=== PATIENT | female | born 1955 | race Caucasian/White ===

== ENCOUNTER 2021-09-08 06:00 | Outpatient (RCR) | payer MEDICARE, SELFPAY | END 2021-09-23 23:59 | disposition home or self-care (01) | LOC: GPT 06:00 | PROVIDERS: Family Provider Family Medicine; PCP Family Medicine; Referring Provider Family Medicine; Visit Provider Family Medicine | DX: M54.2 Cervicalgia (principal) | CPT/HCPCS: 97110; 97140; 97162; G0283 ==

== ENCOUNTER 2021-09-24 06:00 | Outpatient (RCR) | payer MEDICARE, SELFPAY | END 2021-10-24 23:59 | disposition home or self-care (01) | LOC: GPT 06:00 | PROVIDERS: PCP Family Medicine; Referring Provider Family Medicine; Visit Provider Family Medicine | DX: M54.2 Cervicalgia (principal) | CPT/HCPCS: 97110; 97140; 97164; G0283 ==

== ENCOUNTER 2021-10-25 06:00 | Outpatient (RCR) | payer MEDICARE, SELFPAY | END 2021-11-24 23:59 | disposition home or self-care (01) | LOC: GPT 06:00 | PROVIDERS: PCP Family Medicine; Referring Provider Family Medicine; Visit Provider Family Medicine | DX: M54.2 Cervicalgia (principal) | CPT/HCPCS: 97110; 97140 ==

== ENCOUNTER 2022-01-12 08:48 | Outpatient (CLI) | payer MEDICARE, SELFPAY ==
--- NOTE | 2022-01-12 | US_ITS ---
WS: [id number] Complete ABDOMINAL ULTRASOUND HISTORY: ABD PAIN COMPARISON: None available. Liver: 12.9 cm in length. Liver is normal size and echogenicity with no mass or intrahepatic dilatati on. Portal Vein: Not imaged. Gallbladder: Prior cholecystectomy. Pancreas: Not well visualized. CBD: 0.5 cm. Right kidney: 10.5 cm x 4.5 cm x 4.0 cm. No mass, cortical thickening or hydronephrosis. Left kidney: 10.1 cm x 4.4 cm x 3.9 cm. No mass, cortical thickening or hydronephrosis. Spleen: Normal size and echogenicity. Abdominal aorta and IVC are within normal limits. No ascites. US/US abdomen complete* [id number] IMPRESSION: 1. Prior cholecystectomy. 2. No bile duct dilatation. 3. Negative liver. 4. Pancreas not visualized.
--- NOTE | 2022-01-12 09:03 | XR_ITS ---
WS: [email or web address] Lumbar spine, 3 views, 01/12/2022 Clinical Data: CHRONIC LOW BACK PAIN Comparison: None. Findings: There is a posterior fusion at L4-L5 with an artificial disc at that level. The bilateral pedicle scr ews and connecting rods are intact. There is an L5 laminectomy. There is a slight levoscoliosis. Ther e is degenerative disc narrowing at T12-L1 and L1-L2 with anterior osteophytes at L1-L2 There are clips in the right upper quadrant from a cholecystectomy. There is a large amount of fecal material throughout the colon. XR/XR lumbar spine 2-3V* [id number] Impression: 1. Posterior fusion at L4-L5. 2. Levoscoliosis with osteoarthritis and degenerative disc disease at L1-L2. 3. Degenerative disc narrowing at T12-L1.
--- NOTE | 2022-01-12 09:03 | XR_ITS ---
WS: [email or web address] Left hand, 3 views, 01/12/2022 Clinical Data: LEFT HAND PAIN Comparison: None. Findings: No fractures or dislocations are seen. The soft tissues are unremarkable. There is osteoarthritis of the left thumb IP joint and base of the left first metacarpal. There is osteoarthritis of the left se cond finger DIP joint. There is calcification of the triradiate cartilage. No periarticular demineralization is seen. XR/XR hand LT min 3V* [id number] Impression: 1. 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 2. Calcification of the triradiate cartilage.
--- NOTE | 2022-01-12 09:03 | XR_ITS ---
WS: [email or web address] Right hand, 3 views, 01/12/2022 Clinical Data: RIGHT HAND PAIN Comparison: None. Findings: No fractures or dislocations are seen. The soft tissues are unremarkable. There is osteoa rthritic change of the base of the right first metacarpal. There is calcification of the triradiate c artilage. No periarticular demineralization is seen. XR/XR hand RT min 3V* [id number] Impression: Osteoarthritis of the base of the right first metacarpal and calcification of t he triradiate cartilage.
--- NOTE | 2022-01-12 09:04 | XR_ITS ---
WS: [email or web address] Right foot, 3 views, 01/13/2022 Clinical Data: RIGHT FOOT PAIN Comparison: None. Findings: No fractures or dislocations are seen. No bone destruction or erosion is noted. There is an osteotomy of the distal right first metatarsal with a bunionectomy. There is a probable bunionectomy of the la teral aspect of the head of the right fifth metatarsal.. There is an Achilles spur. XR/XR foot RT min 3V* [id number] Impression: 1. Osteotomy and bunionectomy of the distal right first metatarsal. 2. Probable bunionectomy of lateral aspect of distal right fifth metatarsal.
--- NOTE | 2022-01-12 09:04 | XR_ITS ---
WS: [email or web address] Left foot, 3 views, 01/13/2022 Clinical Data: LEFT FOOT PAIN Comparison: None. Findings: No fractures or dislocations are seen. No bone destruction or erosion is noted. There is a small buni on at the head of the left first metatarsal. No periarticular demineralization is seen. Is minimal ca lcification of the inferior posterior calcaneus which may be in the plantar fascia. XR/XR foot LT min 3V* [id number] Impression: Small bunion head of left first metatarsal.
== END 2022-01-12 08:49 | disposition home or self-care (01) ==
LOC: RAD 08:48
PROVIDERS: PCP Family Medicine; Visit Provider Family Medicine
DX: R10.9 Unspecified abdominal pain (principal); M79.671 Pain in right foot; G89.29 Other chronic pain; M21.612 Bunion of left foot; Z98.1 Arthrodesis status; M51.36 Other intervertebral disc degeneration, lumbar region; M47.816 Spondylosis without myelopathy or radiculopathy, lumbar region; M19.042 Primary osteoarthritis, left hand; M19.041 Primary osteoarthritis, right hand; Z90.49 Acquired absence of other specified parts of digestive tract
CPT/HCPCS: 72100; 73130; 73630; 76700

== ENCOUNTER → 2022-01-14 11:37 | Outpatient (BNVA) | payer OTHER, SELFPAY | PROVIDERS: Visit Provider Obstetrics & Gynecology | DX: N81.10 Cystocele, unspecified (principal); N39.490 Overflow incontinence | CPT/HCPCS: 81000 ==

== ENCOUNTER → 2022-02-11 13:25 | Outpatient (BNVA) | payer OTHER, SELFPAY | PROVIDERS: Visit Provider Obstetrics & Gynecology | DX: N94.10 Unspecified dyspareunia (principal); Z90.710 Acquired absence of both cervix and uterus; Z90.722 Acquired absence of ovaries, bilateral | CPT/HCPCS: 76857 ==

== ENCOUNTER → 2022-03-31 14:48 | Outpatient (BNVA) | payer MEDICARE, SELFPAY | PROVIDERS: PCP Family Medicine; Visit Provider Internal Medicine | DX: R76.8 Other specified abnormal immunological findings in serum (principal); K12.1 Other forms of stomatitis; M48.00 Spinal stenosis, site unspecified; L40.9 Psoriasis, unspecified; M25.50 Pain in unspecified joint; M46.1 Sacroiliitis, not elsewhere classified; M19.041 Primary osteoarthritis, right hand; M19.071 Primary osteoarthritis, right ankle and foot; M79.7 Fibromyalgia; Z87.891 Personal history of nicotine dependence | CPT/HCPCS: 72202; 73120; 73620; 80053; 81001; 82607; 82728; 82746; 82784; 83516; 83540; 85025; 85651; 86003; 86008; 86140; 86160; 86162; 86235; 86255; 86376; 86480; 86704; 86803; 86812; 87340; 99204 ==

== ENCOUNTER 2022-04-29 10:08 | Outpatient (CLI) | payer MEDICARE, SELFPAY ==
--- NOTE | 2022-04-29 10:41 | MR_ITS ---
WS: [email or web address] MRI LUMBAR SPINE NONCONTRAST HISTORY: LOW BACK PAIN, prior lumbar spine surgeries. New RIGHT radiculopathy. COMPARISON: No similar studies. TECHNIQUE: Sagittal and axial multisequence imaging is submitted. Straightening of the normal cervical and thoracic curvatures. Prior L4-5 posterior lumbar fusion. Disc spaces are narrowed and desiccated throughout the lumbar spine but most significant at L4-5 and L1-2. No acute fractures. Conus terminates normally at L1. L1-L2: Moderate osteophytic ridging and annular disc bulging. Disc bulging asymmetric to the RIGHT. M ild disc encroachment upon the traversing RIGHT L2 nerve root. No high-grade stenosis. L2-L3: Diffuse annular disc bulging with osteophytic ridging. Marked bilateral facet joint arthritis and hypertrophic bone formation. Facet joint arthritis encroaching into the subarticular recesses and central canal. Moderate central, bilateral subarticular recess and foraminal stenosis. RIGHT foramin al disc protrusion causing a more significant stenosis. Severe encroachment upon the RIGHT subarticul ar recess and traversing L3 nerve root. L3-L4: Diffuse annular disc bulging and osteophytic ridging. Severe facet joint arthritis and ligamen samantha flavum arthritis encroaching into the thecal sac and foramina. Severe central, bilateral subartic ular and RIGHT foraminal stenosis. Moderate LEFT foraminal stenosis. L4-L5: No central stenosis. Large laminectomy defect. Very mild foraminal stenosis. L5-S1: Bilateral facet joint arthritis. Mild encroachment into the subarticular recesses. No high-gra de stenosis. Paravertebral soft tissues are negative. MR/MR lumbar spine wo con* [id number] IMPRESSION: 1. Prior posterior lumbar fusion at L4-5. Large posterior laminectomy defect. 2. Severe central, bilateral subarticular recess and RIGHT foraminal stenosis at L3-4. Predominantly due to facet joint arthritis and ligamentum flavum hyper trophy. 3. Moderate central with bilateral subarticular recess and foraminal stenosis at L2-3. More significant encroachment into the RIGHT subarticular recess with deformity of the traversing RIGHT L3 nerve root. There is probably a smaller di sc protrusion contributing to the stenosis in the RIGHT subarticular recess and proximal foramen. 4. No fracture.
== END 2022-04-29 10:09 | disposition home or self-care (01) ==
PROVIDERS: PCP Family Medicine; Visit Provider Family Medicine
DX: Z98.1 Arthrodesis status (principal); M48.061 Spinal stenosis, lumbar region without neurogenic claudication
CPT/HCPCS: 72148

== ENCOUNTER → 2022-05-10 16:50 | Outpatient (BNVA) | payer MEDICARE, SELFPAY | PROVIDERS: PCP Family Medicine; Visit Provider Internal Medicine | DX: R76.8 Other specified abnormal immunological findings in serum (principal); K13.79 Other lesions of oral mucosa; M48.00 Spinal stenosis, site unspecified; D80.3 Selective deficiency of immunoglobulin G [IgG] subclasses; K12.1 Other forms of stomatitis; Z87.891 Personal history of nicotine dependence; Z82.61 Family history of arthritis | CPT/HCPCS: 36415; 82784; 99214 ==

== ENCOUNTER → 2022-05-19 14:20 | Outpatient (BNVA) | payer MEDICARE, SELFPAY | PROVIDERS: PCP Family Medicine; Visit Provider Urology | DX: N31.8 Other neuromuscular dysfunction of bladder (principal); R39.198 Other difficulties with micturition; R33.9 Retention of urine, unspecified; M48.00 Spinal stenosis, site unspecified | CPT/HCPCS: 51741; 51798; 52000; 81003; 99204 ==

== ENCOUNTER 2022-08-03 13:18 | Observation (INO) | payer MEDICARE, SELFPAY ==
[2022-08-01 13:56] LABS: Add Urine Microscopic? NO; Charge for UA Resulting for Rev
[2022-08-01 13:57] VITALS: BMI 36.0
[2022-08-01 13:59] LABS: Bilirubin Urine Neg (Negative); Blood Urine Neg (Negative); Glucose Urine UA Norm (Normal); Ketones Urine Negative (Negative); Leukocyte Esterase Urine Negative (Negative); Nitrate Urine Negative (Negative); Protein Urine Neg (Negative); Specific Gravity, Urine 1.015 (1.005-1.030); Urine Appearance Clear (CLEAR); Urine Color Yellow (Yellow); Urobilinogen Urine Norm (Negative); pH Urine 5 (5-7)
[2022-08-01 14:17] LABS: Basophils # 0.1 10^3/uL (0.0-0.1); Basophils % 0.9 %; Eosinophils # 0.3 10^3/uL (0.0-0.8); Eosinophils % 3.7 %; Hematocrit 42.5 % (37.0-47.0); Hemoglobin 13.9 g/dL (11.5-15.3); Lymphocytes # 2.6 10^3/uL (0.8-4.8); Lymphocytes % 38.3 %; Mean Corpuscular HGB Conc 32.7 g/dL (30.0-36.0); Mean Corpuscular Volume 88.5 fl (81-99); Mean Platelet Volume 10.4 fL (7.4-10.4); Monocytes # 0.5 10^3/uL (0.2-0.9); Monocytes % 6.7 %; Neutrophils # 3.44 10^3/uL (1.8-7.7); Neutrophils % 50.3 %; Nucleated Red Blood Cells % 0 %; Platelet Count 266 10^3/cmm (130-400); Red Cell Distribution Width 12.9 % (12.1-15.1); White Blood Count 6.8 10^3/uL (4.0-10.0)
[2022-08-01 14:34] LABS: Alanine Aminotransferase 15 U/L (0-33); Albumin Level 4.4 g/dL (3.5-5.2); Alkaline Phosphatase 98 U/L (35-105); Anion Gap 13.6 (5-19); Aspartate Amino Transferase 18 U/L (0-32); Blood Urea Nitrogen 15 mg/dL (8-23); Calcium 9.3 mg/dL (8.5-10.5); Carbon Dioxide 31 mmol/L (22-29); Chloride 98 mmol/L (98-107); Globulin 2.5 g/dL (1.3-4.6); Glomerular Filtration Rate 71.5 mL/min (90-130); Glucose 111 mg/dL (65-115); Osmolality Calculated 290 mOsm/kg (285-295); Potassium 3.6 mmol/L (3.5-5.1); Sodium 139 mmol/L (136-145); Total Bilirubin 0.2 mg/dL (0.15-1.2); Total Protein 6.9 g/dL (6.6-8.7)
--- NOTE | 2022-08-01 15:59 | ANES.PREANE2 ---
Pre-Anesthetic Assessment Height/Weight: Height 1.7 m Weight 104.326 kg Operation Date: 08/03/22 11:35 Proposed Procedures p Posterior colporrhaphy 29630, Sacrospinous fixation via anchorsure 45894,N81.6, N99.3(Not Applicable) - Juan Marques MD Familial anesthetic complications: none Was Beta Lili taken within 24 hours: N/A Was Clonidine taken within 24 hours: N/A Social No alcohol and No tobacco Exam alert, oriented x 3, clear to auscultation bilaterally and regular rate & rhythm Airway Submandibular: within normal limits Cervical ROM: within normal limits Mallampati: Class II Dentition: chipped CV/HEM Hypertension Metabolic Morbid Obesity Musc/skel Lower Back Pain and Osteoarthritis/DJD Anesthetic Plan ASA status: 3 Anesthesia: General Medications/Allergies Home Medications Medication Instructions Recorded Confirmed Last Taken Type duloxetine 60 mg capsule,delayed 60 mg PO DAILY 01/13/22 08/01/22 08/01/22 History release (Cymbalta) gabapentin 100 mg capsule 100 mg PO BID 01/13/22 08/01/22 08/01/22 History hydrochlorothiazide 25 mg tablet 25 mg PO DAILY 01/14/22 08/01/22 08/01/22 History linaclotide [Linzess] 72 100 ml PO .three times per week 01/14/22 08/01/22 07/30/22 History tramadol 50 mg tablet 50 mg PO TID PRN Pain, Mild 01/14/22 08/01/22 08/01/22 History nystatin 100,000 unit/mL oral 1 ml PO DAILY #473 mL 03/31/22 08/01/22 07/25/22 Rx suspension triamcinolone acetonide 0.1 % 1 applic dental DAILY PRN mouth 03/31/22 08/01/22 07/31/22 Rx dental paste irritation #5 grams estradiol 0.5 mg tablet 0.5 mg PO DAILY 05/19/22 08/01/22 08/01/22 History tamsulosin 0.4 mg capsule 0.4 mg PO QDAY #30 caps 05/19/22 08/01/22 08/01/22 Rx aspirin 325 mg tablet 325 mg PO BID 08/01/22 08/01/22 08/01/22 History Allergies Allergy/AdvReac Type Severity Reaction Status Date / Time adhesive tape Allergy Intermediate ADR-Itching Verified 08/01/22 13:51 codeine AdvReac Severe ALGY-Swell Verified 08/01/22 13:51 Lip/Tongue/Throat cephalexin Allergy Severe hives Uncoded 08/01/22 09:19 [facility] Anesthesia Medical History HARRY positive Degeneration, intervertebral disc Degeneration, intervertebral disc, lumbar Fibromyalgia Incomplete bladder emptying Spinal stenosis Surgical History History of hysterectomy History of spinal surgery Family History Mother Hypercholesteremia Grandfather Colon cancer age unknown Anesthesia complication maternal Father Heart disease all of fathers side has had heart disease Grandmother Diabetes paternal Family/Other Diabetes paternal aunts x4 Heart disease paternal uncles Stroke maternal uncle Ovarian cancer paternal aunt, age unknown Brother Hypertension Daughter Thyroid disease x3 Denies family history of Clotting disorder Breast cancer Bleeding disorder Uterine cancer Social History Smoking and tobacco status: former smoker (quite 20 years ago) Alcohol intake: never Household members: spouse Current occupational status: retired Data Anesthesia 08/01/22 14:03 08/01/22 14:03 Short CBC 08/01/22 Range/Units 14:03 WBC 6.8 (4.0-10.0) 10^3/uL Hgb 13.9 (11.5-15.3) g/dL Hct 42.5 (37.0-47.0) % MCV 88.5 (81-99) fl Plt Count 266 (130-400) 10^3/cmm Neut % (Auto) 50.3 % Neut # (Auto) 3.44 (1.8-7.7) 10^3/uL BMP 08/01/22 14:03 Sodium 139 Potassium 3.6 Chloride 98 Carbon Dioxide 31 H BUN 15 Creatinine 0.8 Glucose 111 Calcium 9.3 Liver Function 08/01/22 Range/Units 14:03 Total Bilirubin 0.2 (0.15-1.2) mg/dL AST 18 (0-32) U/L ALT 15 (0-33) U/L Alkaline Phosphatase 98 (35-105) U/L Albumin 4.4 (3.5-5.2) g/dL Urine 08/01/22 Range/Units 13:45 Urine Color Yellow (Yellow) Urine Appearance Clear (CLEAR) Urine pH 5 (5-7) Ur Specific [place] 1.015 (1.005-1.030) Urine Protein Neg (Negative) Urine Glucose (UA) Norm (Normal) Urine Ketones Negative (Negative) Urine Nitrate Negative (Negative) Urine Bilirubin Neg (Negative) Ur Leukocyte Esterase Negative (Negative) Blood Bank 08/01/22 14:03 Blood Type O Positive Rho(D) Type Positive Antibody Screen Negative Cardiac Studies: No Data to Display
[2022-08-03] VITALS (13 sets, daily range): BP systolic 116–169; BP diastolic 56–101; PULSE 78–96; RESP 14–18; TEMP 36.4–36.6; O2SAT 87–100
[2022-08-03] MEDS: enoxaparin 30 mg/0.3 mL Syringe SUBCUT (10:00)
[2022-08-03] MEDS: scopolamine 1.5 Patch 1 PATCH TRANSDERMA (10:00)
[2022-08-03] MEDS: sodium chloride 0.9% 1,000 ML 30 ML IV (10:00)
--- NOTE | 2022-08-03 10:41 | W.PM.OPSUD ---
Surgery/Procedure H&P Update DATE OF PROCEDURE: August 03, 2022 DATE H&P PERFORMED: 08/01/22 H&P UPDATE INFORMATION: I have reviewed H&P completed within last 30 days, I have examined patient prior to procedure and No changes to prior documentation PREOP DIAGNOSIS: Rectocele stage III PLANNED PROCEDURE: Operation Date: 08/03/22 11:25 Proposed Procedures p Posterior colporrhaphy 85376, Sacrospinous fixation via anchorsure 36341,N81.6, N99.3(Not Applicable) - Juan Marques MD
[2022-08-03] MEDS: ceFAZolin 3,000 MG in sodium chloride 0.9% (100 ml) 100 ML 200 MG IV (11:00)
[2022-08-03] MEDS: lidocaine-epi 2% 20 mL INJ (11:43)
[2022-08-03] MEDS: estrogens Conjugated Cream 30 gm 1 APPLIC VAGINAL (12:17)
--- NOTE | 2022-08-03 12:27 | XRR_ITS ---
PROCEDURE INFORMATION: Exam: XR Pelvis Exam date and time: 08/03/2022 11:36 AM Age: 67 years old Clinical indication: Screening exam; Needle count verification; Prior surgery; Surgery date: Post-operative (0-2 days); Surgery type: Post op lost sponge TECHNIQUE: Imaging protocol: Radiologic exam of the pelvis. Views: 1 or 2 view. COMPARISON: CR XR sacroiliac jts m 3V [id number] 03/31/2022 3:23 PM FINDINGS: Bones/joints: Internal fixation the spine. Soft tissues: No other radiopaque foreign bodies are identified. Other findings: There are curvilinear metal lines overlying the right pubic bone and minimally crossing midline. It is not have the typical appearance of a sponge however clinical correlation is recommended. XR/XR pelvis 1-2V* [id number] IMPRESSION: 1. Metallic foreign bodies linear in shape not have a typical appearance of a typical sponge overlying the pubic bone on the right. This needs clinical correlation. 2. Postoperative spine changes. If clinically indicated consider radiographing a surgical sponge and comparing it to the artifact/foreign bodies seen on this examination.
--- NOTE | 2022-08-03 13:20 | PM.OP ---
Operative Report Date of procedure: August 03, 2022 Pre-op diagnosis: Preop Diagnosis Rectocele stage III Post-op diagnosis: Same as above Procedure done: Posterior colporrhaphy Surgeon: Juan Marques MD Estimated blood loss (mL): 250 IV fluids (mL): 100 Urine output (mL): 300 Complications: Bleeding Procedure: After obtaining informed consent, the patient was taken to the operating room and placed in the supine position, given general anesthesia, and prepped and draped in sterile fashion. The abdomen, vulva and vagina were prepped and draped in a sterile manner. A time out procedure was performed. The posterior vaginal mucosa was infiltrated with 2% lidocaine with epinephrine and into the perineal body. A gordon shaped incision to cut in the perineum. The posterior vaginal wall was opened vertically and midline up to the apex of the rectocele. The cut edges were held and splayed laterally with a series of Allis clamps. The open vaginal mucosa was then dissected laterally with a combination of sharp and blunt dissection, exposing the perirectal fascia. Patient started with profuse bleeding the perirectal fascia was then reapproximated with interrupted #2-0 Vicryl sutures to draw the lateral folds together and tuck the rectocele back. Deep interrupted sutures of #0 Vicryl were used to reapproximate the fibers of the levator ani muscles. The excess vaginal mucosa was trimmed. Significant bleeting occured. The posterior vaginal wall was closed with a running locked #0 Vicryl to the hymenal tags. The superficial perineal muscles were closed with running unlocked #0 Vicryl and the perineal skin was closed with running subcuticular #2-0 Vicryl. All sponges and instruments were removed. However showed 1 Raytec gauze missing. Count was performed several times. An x-ray was ordered and was noticed that a Ray-Fransisca gauze was still in place, placed to control bleeding. Patient was prepped and draped again the vaginal incision was released and the Raytec gauze Sponge was recovered and vaginal incision was closed again in a running lock suture with 2-0 Vicryl. A vaginal pack is placed for overnight postoperative support to the vaginal tissues after repair and closure of vaginal incisions. Sponge, lap, needle, and instrument counts were correct times seven. The patient was taken to the recovery room, awake and in stable condition.
[2022-08-03] MEDS: ketorolac 30 mg/mL INJ IVP ×2 (14:11→22:00)
--- NOTE | 2022-08-03 14:42 | P.ANESUD_ITS ---
Pre-Anesthetic Update Pre-Anesthetic Assessment: Date of Surgery/Procedure: 08/03/22 Preop Saira gnosis: Rectocele stage III Proposed Procedure: Operation Date: 08/03/22 11:25 Proposed Procedures p Posterior colporrhaphy 13070, Sacrospinous fixation via anchorsure 56834,N81.6, N99.3(Not Applicable) - Juan Marques MD Any changes to Pre-Anesthetic Assessment?: No Last Intake: Intake Last Liquid Date 08/02/22 Last Liquid Time 22:20 Last Solid Date 08/02/22 Last Solid Time 22:20 Labs Last 48hrs: Blood Bank 08/01/22 14:03 Blood Type O Positive Rho(D) Type Positive Antibody Screen Negative Vitals: Temperature 97.5 F L 08/03/22 09:51 Temperature Source Temporal Artery S can 08/03/22 09:51 Pulse Rate 96 08/03/22 13:45 Respiratory Rate 18 08/03/22 13:45 Blood Pressure 145/73 08/03/22 13:45 Blood Pressure Sania n 97 08/03/22 13:45 Pulse Oximetry 98 08/03/22 13:45 Oxygen Delivery Me thod Room Air 08/03/22 13:45 Oxygen Flow Rate 6 08/03/22 13:30 Exam: Pre-Anes Outpt Exam: alert, oriented x 3, clear to auscultation bilaterally and regular rate & rhythm Cardiac Studies: No Data to Display
[2022-08-03] MEDS: HYDROcodone-acetaminophen 5-325 mg Tablet PO ×2 (14:45→21:31)
--- NOTE | 2022-08-03 15:32 | ANE.PACU2 ---
Inpatient post-anesthesia follow up: Airway intact: Yes Vital signs: Temperature 97.5 F Pulse Rate 96 Respiratory Rate 18 Blood Pressure 145/73 Pulse Oximetry 98 Oxygen Delivery Me thod Room Air Oxygen Flow Rate 6 Fraction of Inspir ed Oxygen Hydration adequate: Yes Nausea and vomiting: No Pain level: 3 Mental status: Baseline
[2022-08-03] MEDS: docusate sodium 100 mg Capsule PO (17:20)
[2022-08-03] MEDS: tamsulosin 0.4 mg Capsule PO (17:20)
[2022-08-03] MEDS: aspirin 325 mg Tablet PO (17:21)
[2022-08-03] MEDS: simethicone 80 mg Chew PO (20:59)
[2022-08-03] MEDS: gabapentin 100 mg Capsule PO (20:59)
[2022-08-04] MEDS: dextrose 5%-lactated ringers 1,000 ML 125 ML IV (00:28)
--- NOTE | 2022-08-04 03:28 | PM.OBGYDC ---
Discharge Providers TRANSMISSION AND COORDINATION ENGINEER Date of Admission: 08/03/22 13:18 Date of Discharge: 08/04/22 Attending Provider at Admission: Juan Marques MD Attending Provider at Discharge: Juan Marques MD Primary Care Provider: Rasruth ann [facility] Hospital Course Mrs. Domingo 61-year-old female with a history of rectocele admitted for planned posterior colporrhaphy. The procedure was performed complicated by bleeding. Overnight observation uneventful. She is afebrile hemodynamically stable postoperative day 1. Tolerating diet well. Ambulating without difficulty. She was counseled regarding pelvic rest for 6 weeks (no sex, no tampons, no vaginal douches). Return to the emergency room if any fever, increased bleeding or pain. Physical Exam Narrative: GA: Alert and oriented ?3. HEENT: WNL. Heart: Regular rate and rhythm. Lungs: Clear to auscultation bilaterally. 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 Extremities: No edema, no cyanosis, no calves pain. Urinary Catheter Management: Izaguirre: Cath Placed During This Visit: yes Urinary Catheter Date of Insertion: 08/03/22 Urinary Catheter Time of Insertion: 11:27 History History History 5 Term 4 0 Miscarriages/Ectopic 1 Living Children 4 Discharge Data Studies Completed and Pending Completed Studies During Hospitalization Category Date Time Status XR pelvis 1-2V* [id number] Stat Exams 08/03/22 12:27 Completed Pending at discharge Category Date Time Status Hemagram Timed Lab 08/04/22 05:00 Uncollected Radiology Impressions Pelvis X-Ray 08/03/22 12:27 IMPRESSION: 1. Metallic foreign bodies linear in shape not have a typical appearance of a typical sponge overlying the pubic bone on the right. This needs clinical correlation. 2. Postoperative spine changes. If clinically indicated consider radiographing a surgical sponge and comparing it to the artifact/foreign bodies seen on this examination. Laboratory Results WBC 6.8 10^3/uL (4.0-10.0) 08/01/22 14:03 RBC 4.80 10^6/uL (4.1-5.3) 08/01/22 14:03 Hgb 13.9 g/dL (11.5-15.3) 08/01/22 14:03 Hct 42.5 % (37.0-47.0) 08/01/22 14:03 MCV 88.5 fl (81-99) 08/01/22 14:03 MCH 29.0 pg (28.0-34.0) 08/01/22 14:03 MCHC 32.7 g/dL (30.0-36.0) 08/01/22 14:03 RDW 12.9 % (12.1-15.1) 08/01/22 14:03 Plt Count 266 10^3/cmm (130-400) 08/01/22 14:03 MPV 10.4 fL (7.4-10.4) 08/01/22 14:03 Neut % (Auto) 50.3 % 08/01/22 14:03 Lymph % (Auto) 38.3 % 08/01/22 14:03 [place] % (Auto) 6.7 % 08/01/22 14:03 Eos % (Auto) 3.7 % 08/01/22 14:03 Baso % (Auto) 0.9 % 08/01/22 14:03 Neut # (Auto) 3.44 10^3/uL (1.8-7.7) 08/01/22 14:03 Lymph # (Auto) 2.6 10^3/uL (0.8-4.8) 08/01/22 14:03 [place] # (Auto) 0.5 10^3/uL (0.2-0.9) 08/01/22 14:03 Eos # (Auto) 0.3 10^3/uL (0.0-0.8) 08/01/22 14:03 Baso # (Auto) 0.1 10^3/uL (0.0-0.1) 08/01/22 14:03 Nucleated RBC % (auto) 0 % 08/01/22 14:03 Nucleated RBCs # 0.0 /100WBC 08/01/22 14:03 Sodium 139 mmol/L (136-145) 08/01/22 14:03 Potassium 3.6 mmol/L (3.5-5.1) 08/01/22 14:03 Chloride 98 mmol/L (98-107) 08/01/22 14:03 Carbon Dioxide 31 mmol/L (22-29) H 08/01/22 14:03 Anion Gap 13.6 (5-19) 08/01/22 14:03 BUN 15 mg/dL (8-23) 08/01/22 14:03 Creatinine 0.8 mg/dL (0.5-0.9) 08/01/22 14:03 GFR Calculation 71.5 mL/min (90-130) L 08/01/22 14:03 Glucose 111 mg/dL (65-115) 08/01/22 14:03 Calculated Osmolality 290 mOsm/kg (285-295) 08/01/22 14:03 Calcium 9.3 mg/dL (8.5-10.5) 08/01/22 14:03 Total Bilirubin 0.2 mg/dL (0.15-1.2) 08/01/22 14:03 AST 18 U/L (0-32) 08/01/22 14:03 ALT 15 U/L (0-33) 08/01/22 14:03 Alkaline Phosphatase 98 U/L (35-105) 08/01/22 14:03 Total Protein 6.9 g/dL (6.6-8.7) 08/01/22 14:03 Albumin 4.4 g/dL (3.5-5.2) 08/01/22 14:03 Globulin 2.5 g/dL (1.3-4.6) 08/01/22 14:03 Urine Color Yellow (Yellow) 08/01/22 13:45 Urine Appearance Clear (CLEAR) 08/01/22 13:45 Urine pH 5 (5-7) 08/01/22 13:45 Ur Specific [place] 1.015 (1.005-1.030) 08/01/22 13:45 Urine Protein Neg (Negative) 08/01/22 13:45 Urine Glucose (UA) Norm (Normal) 08/01/22 13:45 Urine Ketones Negative (Negative) 08/01/22 13:45 Urine Blood Neg (Negative) 08/01/22 13:45 Urine Nitrate Negative (Negative) 08/01/22 13:45 Urine Bilirubin Neg (Negative) 08/01/22 13:45 Urine Urobilinogen Norm mg/dL (Negative) 08/01/22 13:45 Ur Leukocyte Esterase Negative (Negative) 08/01/22 13:45 Blood Type O Positive 08/01/22 14:03 Rho(D) Type Positive 08/01/22 14:03 Antibody Screen Negative 08/01/22 14:03 Vitals Last Vital Signs Temp 97.9 F 08/03/22 21:33 Pulse 83 08/03/22 21:33 Resp 18 08/03/22 21:33 BP 138/74 08/03/22 21:33 Pulse Ox 96 08/03/22 21:33 O2 Del Method Room Air 08/03/22 21:33 O2 Flow Rate 6 08/03/22 13:30 Discharge Plan Discharge Patient Disposition: Home Condition: Stable Prescriptions: New docusate sodium [Colace] 100 mg capsule 100 mg PO BID Qty: 60 0RF acetaminophen 325 mg capsule 325 mg PO Q4H PRN (Reason: fever or postoperative pain) Qty: 60 0RF Continued triamcinolone acetonide 0.1 % paste 1 applic dental DAILY PRN (Reason: mouth irritation) Qty: 5 0RF Rx Instructions: use after food and/or drink and/or oral hygiene nystatin 100,000 unit/mL suspension 1 ml PO DAILY Qty: 473 0RF Rx Instructions: swish and swallow; spit aspirin 325 mg tablet 325 mg PO BID duloxetine [Cymbalta] 60 mg capsule,delayed release(DR/EC) 60 mg PO DAILY gabapentin 100 mg capsule 100 mg PO BID tramadol 50 mg tablet 50 mg PO TID PRN (Reason: Pain, Mild) linaclotide [Linzess] 72 100 ml PO .three times per week hydrochlorothiazide 25 mg tablet 25 mg PO DAILY estradiol 0.5 mg tablet 0.5 mg PO DAILY Rx Instructions: off 5 days; repeat cycle tamsulosin 0.4 mg capsule 0.4 mg PO QDAY Qty: 30 12RF Discharge Orders: Discharge Order (Routine); Ordered 08/04/22 Ordered By: Juan Marques Referrals: Juan Marques MD [Physician] - 2 weeks Discharge Diet: Soft Mechanical Discharge Activity: Limit activity as instructed Patient Instructions: Posterior Vaginal Repair (DC), OB Discharge Report, OB Food/Drug Interaction Guide, Opioid Safety Activity Restrictions/Additional Instructions: 1. Please call [facility] on next working day to make your post-operative appointment in 2 weeks. 2. Please stay home until you come back to the clinic on first post-hospatilization check up. 3. Please follow instructions on your medications CAREFULLY. 4. If you have abdominal incision, do not cover it unless dressing is necessary because of drainage. OK to shower, but avoid bath. Leave steri-strips until they fall off. If they are still on one week after surgery, you may remove them. 5. If you had vaginal surgery or vaginal repair, Dr. Marques may instruct you to take SITZ bath. 6. Yellow, blood tinged odorous vaginal discharge is usually normal after hysterectomy or vaginal surgeries. 7. No SEXUAL INTERCOURSE, tampons, or douches until you are completely released from the post-operative care. 8. Avoid constipation by eating right and maybe using some Metamucil or Milk of Magnesia. 9. All prescription refills are given during the working hours. Please do no wait till it runs out. Call the clinic at [phone] before your medication runs out. The clinic will get in touch with your doctor to prescribe medications if necessary. 10. Please remain within 40 mile radius from our hospital because emergencies do happen now and then during the post-operative period. 11. If you have stairs at home, take one step at a time slowly and minimize the number of trips. It helps to stay in one floor for the next few days. No lifting except what you can lift by one hand until you are released from the post-operative care. 12. Driving is discouraged until you are well healed. It may be 3-4 weeks before you feel strong enough to drive. You should be able to turn and look through the rear window without pain and you should be able to push the brake pedal very hard without pain before you drive. No fast rules, but SAFETY should be your primary concern. DO NOT drive if you are on sedating medications such as narcotics. 13. Call the clinic (during working hours) to make urgent appointment or go to the Emergency room, if any of the following occurs: i. Vaginal bleeding becomes heavy, more than a period. ii. Incision becomes red and sore, or drains pus. iii. Your TEMPERATURE is over 100.4F or you have chill. iv. IV site becomes red and swollen (a little ``knot?? is usually OK) v. Persistent nausea and vomiting vi. Persistent constipation or diarrhea vii. Rash or allergic reaction to medications. Discharge Attestations TRANSMISSION AND COORDINATION ENGINEER Time Spent in Discharge Care*: greater than 30 min Coding Level of Care Code Acute Code for Chg Fwd Diagnoses
[2022-08-04] MEDS: simethicone 80 mg Chew PO (05:28)
[2022-08-04] MEDS: ketorolac 30 mg/mL INJ IVP (05:28)
[2022-08-04 05:30] VITALS: BP 119/72; PULSE 69; RESP 18; TEMP 36.6; O2SAT 96
[2022-08-04 05:42] LABS: Hematocrit 33.9 % (37.0-47.0); Hemoglobin 10.9 g/dL (11.5-15.3); Mean Corpuscular HGB Conc 32.2 g/dL (30.0-36.0); Mean Corpuscular Hemoglobin 29.4 pg (28.0-34.0); Mean Corpuscular Volume 91.4 fl (81-99); Mean Platelet Volume 10.5 fL (7.4-10.4); Platelet Count 214 10^3/cmm (130-400); Red Blood Count 3.71 10^6/uL (4.1-5.3); White Blood Count 14.6 10^3/uL (4.0-10.0)
[2022-08-04] MEDS: aspirin 325 mg Tablet PO (09:04)
[2022-08-04] MEDS: tamsulosin 0.4 mg Capsule PO (09:04)
[2022-08-04] MEDS: gabapentin 100 mg Capsule PO (09:04)
[2022-08-04] MEDS: duloxetine 60 mg Capsule PO (09:04)
[2022-08-04] MEDS: hydroCHLOROthiazide 25 mg Tablet PO (09:04)
[2022-08-04] MEDS: HYDROcodone-acetaminophen 5-325 mg Tablet PO (09:05)
[2022-08-04] MEDS: estradiol 1 mg Tablet 0.5 MG PO (09:05)
[2022-08-04] MEDS: docusate sodium 100 mg Capsule PO (09:05)
[2022-08-04 11:25] VITALS: BP 152/77; PULSE 79; RESP 14; TEMP 36.9; O2SAT 93
--- NOTE | 2022-08-04 11:45 | PC.NURSE ---
Patient provided with written education as well as verbal education on follow up appointments, Patient portal, S/S to call provider or 911, as well as restrictions at home after procedure. Patient and SO at bedside had no questions at time of discharge. 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
== END 2022-08-04 11:42 | disposition home or self-care (01) ==
LOC: OBGYN 13:18
PROVIDERS: Admitting Provider Obstetrics & Gynecology; PCP Family Medicine; Visit Provider Obstetrics & Gynecology
PROC: (CPT 57250; principal; 2022-08-03 11:15)
DX: N81.6 Rectocele (principal); I10 Essential (primary) hypertension; E66.01 Morbid (severe) obesity due to excess calories; Z68.36 Body mass index [BMI] 36.0-36.9, adult; Z79.82 Long term (current) use of aspirin; Z87.891 Personal history of nicotine dependence
CPT/HCPCS: 57250; 36415; 72170; 80053; 81003; 85025; 85027; 86850; 86900; G0378; J0690; J1100; J1650; J1885; J2370; J2405; J2704; J3010; J7030; J7121; J8499

== ENCOUNTER 2022-12-22 08:00 | Outpatient (CLI) | payer MEDICARE, SELFPAY ==
--- NOTE | 2022-12-22 08:05 | MM_ITS ---
WS: [id number] BILATERAL 3D TOMOSYNTHESIS DIGITAL DIAGNOSTIC MAMMOGRAPHY WITH CAD CLINICAL INFORMATION: RT BR PAIN, NIPPLE SYMPTOMS HISTORY: Palpable lump above the RIGHT nipple. COMPARISON: 2020 TECHNIQUE: Bilateral CC, MLO, and ML views. FINDINGS: The breasts are composed of heterogeneous fibroglandular density, which can limit the detection of sm all underlying mass lesions. Punctate and lucent centered calcifications. Palpable marker at the areola 11 o'clock position. Spiculated nodule with retraction measuring approx imately 9 mm. Ultrasound is pending. ULTRASOUND BREAST RIGHT TECHNIQUE: Ultrasound right breast focused area of concern. CLINICAL INFORMATION: RT BR PAIN, NIPPLE SYMPTOMS FINDINGS: Ultrasound RIGHT breast at the 11 o'clock position areola. Hypoechoic heterogeneous lesion measuring 1.7 x 1.7 x 1.1 cm suspicious for neoplasm. Recommend further evaluation with ultrasound-guided biops y. IMPRESSION: MM/[place] [id number] BI-RADS: 4-Suspicious Finding-Biopsy Should Be Considered FOLLOW UP: US Guided Biopsy Recommended Recommend further evaluation with ultrasound-guided biopsy.
== END 2022-12-22 08:01 | disposition home or self-care (01) ==
PROVIDERS: PCP Family Medicine; Visit Provider Family Medicine
DX: N64.4 Mastodynia (principal)
CPT/HCPCS: 76642; 77062; G0279

== ENCOUNTER 2023-01-11 12:05 | Outpatient (CLI) | payer MEDICARE, SELFPAY ==
--- NOTE | 2023-01-11 12:16 | US_ITS ---
WS: [id number] ULTRASOUND-GUIDED RIGHT BREAST BIOPSY HISTORY: LUMP IN R BREAST COMPARISON: 12/22/2022 Procedure, risks and complications are explained to the patient. Medications are reviewed. Consent is obtained. The mass in the RIGHT breast is localized with ultrasound. Mass localizes to the 11:00 at the areola. Skin is cleansed with ChloraPrep and anesthetized with 1% buffered lidocaine. Small dermatome is mad e. Under sterile conditions mass is biopsied with a 14-gauge Achieve needle. Multiple core biopsies a re performed. Material placed in formalin and sent to pathology for review. No complications encounte red. Breast tissue marker ([employer] ultrasound enhanced ribbon): Single. Patient left the radiology suite with no complications. Patient is instructed to return to [facility] or [facility] with any concerns. IMPRESSION: 1. Uncomplicated core needle biopsy RIGHT breast mass at 11:00, subareolar. US/[place] [id number] PATHOLOGY: Infiltrating ductal adenocarcinoma, moderately to poorly differentia edinson. Foci suspicious for lymphovascular invasion. RECOMMENDATION: Follow-up with breast surgeon and oncology.
[2023-01-17 13:18] LABS: Breast Profile ER,PR,HER2,Ki-6 See Report
== END 2023-01-11 12:06 | disposition home or self-care (01) ==
PROVIDERS: PCP Family Medicine; Visit Provider Family Medicine
DX: C50.011 Malignant neoplasm of nipple and areola, right female breast (principal)
CPT/HCPCS: 19083; 88305; 88342; 88361; 88374

== ENCOUNTER 2024-03-11 06:00 | Outpatient (CLI) | payer MEDICARE, SELFPAY | END 2024-03-11 06:01 | disposition home or self-care (01) | LOC: RAD 04-02 06:57 | PROVIDERS: PCP Family Medicine; Visit Provider Family Medicine | DX: M48.02 Spinal stenosis, cervical region (principal); M25.78 Osteophyte, vertebrae; M50.223 Other cervical disc displacement at C6-C7 level; M48.03 Spinal stenosis, cervicothoracic region | CPT/HCPCS: 72141 ==

== ENCOUNTER 2024-03-12 10:14 | Outpatient (CLI) | payer MEDICARE, SELFPAY ==
--- NOTE | 2024-03-11 12:57 | MR_ITS ---
WS: [id number] MRI CERVICAL SPINE NONCONTRAST HISTORY: CERVICALGIA COMPARISON: None available. Technique: Multiplanar, multisequence noncontrast imaging of the cervical spine. Reversal the normal cervical lordosis. Disc spaces are narrowed. Vertebral body osteophytes are most significant at C5 and C6. No fracture. No marrow edema. Signal within the cervical cord is normal. Visualized posterior fossa is unremarkable. Craniocervical junction, C1 and C2 relationship, odontoid process and soft tissues are normal. C2-C3: Normal. C3-C4: Annular disc bulging with osteophytic vertebral body ridging. Bilateral facet joint arthritis. Mild bilateral foraminal stenosis. C4-C5: Osteophytic ridging and mild facet arthritis. C5-C6: Annular disc bulging with moderate osteophytic ridging. Osteophyte encroachment upon the ventr al canal and foramina. Small bilateral foraminal disc protrusions. Mild central with moderate bilater al foraminal stenosis. C6-C7: Osteophytic ridging with annular disc bulging. Small central disc protrusion. Mild bilateral f oraminal stenosis. C7-T1: Mild RIGHT foraminal stenosis. Mild bilateral facet arthritis. Paraspinal soft tissue are normal. MR/MR cervical spin wo con* [id number] IMPRESSION: 1. Reversal of the normal cervical lordosis. 2. Retrolisthesis of C5 and C6 by 3 and 2 mm respectively. 3. C3-4: Mild bilateral foraminal stenosis due to disc osteophyte disease. 4. C5-6: Mild central with moderate bilateral foraminal stenosis. Disc osteoph yte disease causing the foraminal stenosis. 5. C6-7: Small central disc protrusion with mild bilateral foraminal stenosis. 6. C7-T1: Mild RIGHT foraminal stenosis.
--- NOTE | 2024-03-12 10:25 | MR_ITS ---
WS: [id number] MRI LUMBAR SPINE WITH CONTRAST TECHNIQUE: Sagittal T1, T2 and STIR imaging. Axial T1 and T2 imaging. Post gadolinium imaging was obt ained. CLINICAL INFORMATION: LUMBAR PAIN COMPARISON: 04/29/2022 FINDINGS: Partially visualized dorsal spinal stimulator extending into the thoracic canal. Lumbar scoliosis. Pe dicle screw fixation L4-5 with decompressive laminectomy defects. Disc bulging worse at L3-4. Severe central canal stenosis at the L3-4 level. This is similar in appearance to the prior 2022 L1-L2: Mild annular bulging. Slight narrowing of the RIGHT subarticular recess. Foramen are patent. L2-L3: Mild disc bulging. Mild to moderate central canal stenosis. Narrowing of the RIGHT greater gertrudis n LEFT subarticular recess. Moderate facet arthropathy. Moderate RIGHT foraminal narrowing. L3-L4: Central disc protrusion appears slightly progressed compared to previous. Severe central canal stenosis. Moderate facet arthropathy with ligamentum flavum hypertrophy. Moderate RIGHT foraminal na rrowing impinges the exiting L3 nerve root. Mild LEFT foraminal narrowing. L4-L5: Pedicle screw fixation with laminectomy defects. Spinal canal and foramen are patent. L5-S1: No significant disc bulging. Moderate to advanced facet arthropathy. Tapering of the thecal sa c distally. Foramen are patent. Visualized pelvic bony structures: Normal. Paravertebral soft tissues: Normal. MR/MR lumbar spine wo/w con [id number] IMPRESSION: 1. Severe central canal stenosis L3-4 with a central disc protrusion appears s lightly progressed but similar in appearance to 04/29/2022. 2. Mild central canal stenosis L2-3 with impingement the RIGHT subarticular re cess appears stable. 3. Prior postoperative changes pedicle screw fixation L4-5 with interbody fusi on graft. 4. Dorsal spinal stimulator extends into the thoracic spine off the field-of-v iew. 5. No abnormal gadolinium enhancement. 6. No other significant changes.
--- NOTE | 2024-03-12 10:25 | MR_ITS ---
WS: [id number] MRI THORACIC SPINE WITH CONTRAST TECHNIQUE: Sagittal T1, T2 and STIR imaging. Axial T2 imaging. Post gadolinium imaging was obtained. CLINICAL INFORMATION: MID BACK PAIN COMPARISON: None. FINDINGS: Mild thoracic curve. Mild thoracic kyphosis. No acute compression fractures. No high-grade central ca nal stenosis. Cord signal is normal. Partially visualized spinal stimulator extending off the field-o f-view. A few Schmorl's nodes in the midthoracic spine with mild chronic anterior wedging. Mild spond ylitic changes throughout the thoracic spine. Moderate facet arthropathy lower thoracic spine. No sig nificant disc extrusions or protrusions. No abnormal gadolinium enhancement. Normal caliber thoracic aorta. Slightly nodular thyroid. Small esophageal hiatal hernia. Adrenal glan ds are normal. MR/MR thoracic spine wo/w [id number] IMPRESSION: 1. Mild thoracic curve. No acute compression. No high-grade central canal sten osis. 2. Cord signal is normal. 3. Partially visualized spinal stimulator extending off the [id number]. No evidence of epidural hematoma or abnormal enhancement. 4. Mild spondylitic changes thoracic spine. No other acute findings.
[2024-03-12] MEDS: gadobenate dimeglumine 20 mL vial IV (11:18)
== END 2024-03-12 10:15 | disposition home or self-care (01) ==
PROVIDERS: PCP Family Medicine; Visit Provider Nurse Practitioner
DX: M43.8X4 Other specified deforming dorsopathies, thoracic region (principal); M46.84 Other specified inflammatory spondylopathies, thoracic region; M48.061 Spinal stenosis, lumbar region without neurogenic claudication; M51.26 Other intervertebral disc displacement, lumbar region; Z98.1 Arthrodesis status; Z96.82 Presence of neurostimulator
CPT/HCPCS: 72141; 72157; 72158

== ENCOUNTER → 2024-07-24 08:38 | Outpatient (BNVA) | payer MEDICARE, SELFPAY | PROVIDERS: PCP Family Medicine; Visit Provider Internal Medicine Rheumatology | DX: D80.3 Selective deficiency of immunoglobulin G [IgG] subclasses (principal); R76.8 Other specified abnormal immunological findings in serum; M25.50 Pain in unspecified joint; Z79.899 Other long term (current) drug therapy; Z71.85 Encounter for immunization safety counseling; M05.20 Rheumatoid vasculitis with rheumatoid arthritis of unspecified site; M81.0 Age-related osteoporosis without current pathological fracture | CPT/HCPCS: 99214 ==

== ENCOUNTER 2024-07-30 11:42 | Outpatient (CLI) | payer MEDICARE, SELFPAY ==
--- NOTE | 2024-07-30 11:58 | XRR_ITS ---
PROCEDURE INFORMATION: Exam: XR Chest Exam date and time: 07/30/2024 12:25 PM Age: 69 years old Clinical indication: On breathing; Prior surgery; Surgery date: 6+ months; Surgery type: Mastectomy, pain stimulator; HX of breast cancer; Additional info: R07.1 - chest pain on breathing TECHNIQUE: Imaging protocol: Radiologic exam of the chest. Views: 2 views. COMPARISON: MR thoracic spine wo/w [id number] 03/12/2024 11:04 AM FINDINGS: Tubes, catheters and devices: Electrodes in the mid and lower thoracic spinal canal. Lungs: Unremarkable. No consolidation. Pleural spaces: Unremarkable. No pleural effusion. No pneumothorax. Heart/Mediastinum: Unremarkable. No cardiomegaly. Bones/joints: Mild scoliosis and kyphosis. Severe L1-L2 degenerative disc disease. Otherwise, unremarkable. XR/XR chest 2V* [id number] IMPRESSION: No acute disease.
[2024-07-30 12:48] LABS: Basophils # 0.1 10^3/uL (0.0-0.1); Basophils % 0.6 %; Eosinophils # 0.1 10^3/uL (0.0-0.8); Eosinophils % 1.4 %; Hematocrit 44.1 % (36-47); Lymphocytes # 3.3 10^3/uL (0.8-4.8); Lymphocytes % 38.4 %; Mean Corpuscular HGB Conc 34.2 g/dL (30-55); Mean Corpuscular Volume 87.5 fl (85-98); Mean Platelet Volume 10.9 fL (7.4-10.4); Monocytes # 0.6 10^3/uL (0.2-0.9); Monocytes % 6.5 %; Neutrophils % 52.9 %; Nucleated Red Blood Cells % 0 %; Platelet Count 299 10^3/cmm (157-399); Red Blood Count 5.04 10^6/uL (3.85-5.65); Red Cell Distribution Width 12.7 % (12.1-15.1)
[2024-07-30 12:49] LABS: Erythrocyte Sedimentation Rate 8 mm/hr (0-15)
[2024-07-30 13:10] LABS: Alanine Aminotransferase 20 U/L (0-33); Albumin Level 4.4 g/dL (3.5-5.2); Alkaline Phosphatase 94 U/L (35-105); Aspartate Amino Transferase 22 U/L (0-32); C Reactive Protein 10.8 mg/L (0.0-4.9); Globulin 2.6 g/dL (1.3-4.6); Glomerular Filtration Rate 62.1 mL/min (90-130); Total Bilirubin 0.4 mg/dL (0.15-1.2)
== END 2024-07-30 11:43 | disposition home or self-care (01) ==
PROVIDERS: Visit Provider Internal Medicine Rheumatology
DX: R07.1 Chest pain on breathing (principal); Z79.899 Other long term (current) drug therapy
CPT/HCPCS: 36415; 71046; 80076; 82565; 85025; 85651; 86140

== ENCOUNTER → 2024-11-26 14:09 | Outpatient (BNVA) | payer MEDICARE, SELFPAY | PROVIDERS: Visit Provider Internal Medicine Rheumatology | DX: D80.3 Selective deficiency of immunoglobulin G [IgG] subclasses (principal); R76.8 Other specified abnormal immunological findings in serum; M25.50 Pain in unspecified joint; Z79.899 Other long term (current) drug therapy; Z71.85 Encounter for immunization safety counseling | CPT/HCPCS: 99214 ==

== ENCOUNTER 2024-11-28 10:54 | Outpatient (CLI) | payer MEDICARE, SELFPAY ==
[2024-11-28 11:45] LABS: Hematocrit 42.3 % (36-47); Hemoglobin 14.40 g/dL (11.27-16.99); Mean Corpuscular HGB Conc 34.0 g/dL (30-55); Mean Corpuscular Hemoglobin 29.9 pg (27-33); Mean Corpuscular Volume 87.8 fl (85-98); Nucleated Red Blood Cells % 0 %; Platelet Count 280 10^3/cmm (157-399); Red Blood Count 4.82 10^6/uL (3.85-5.65); White Blood Count 7.62 10^3/uL (3.29-11.43)
[2024-11-28 12:00] LABS: Alanine Aminotransferase 17 U/L (0-33); Albumin Level 4.4 g/dL (3.5-5.2); Alkaline Phosphatase 95 U/L (35-105); Aspartate Amino Transferase 22 U/L (0-32); Globulin 2.7 g/dL (1.3-4.6); Total Protein 7.1 g/dL (6.6-8.7)
[2024-11-28 13:24] LABS: Vitamin B12 > 2000 pg/mL (232-1245)
[2024-11-29 16:49] LABS: Anti-Double Strand DNA AB 1 IU/mL
== END 2024-11-28 10:55 | disposition home or self-care (01) ==
PROVIDERS: Visit Provider Internal Medicine Rheumatology
DX: M05.20 Rheumatoid vasculitis with rheumatoid arthritis of unspecified site (principal); M25.50 Pain in unspecified joint; Z79.899 Other long term (current) drug therapy; M81.0 Age-related osteoporosis without current pathological fracture
CPT/HCPCS: 36415; 80076; 82306; 82565; 82607; 82746; 83520; 85025; 85651; 86140; 86200; 86225; 86235; 86431; 86480